=== PATIENT | female | born 1995 | race African-American/Black ===

== ENCOUNTER 2017-03-09 08:23 | Emergency (ER) | payer OTHER ==
[2017-03-09 08:37] VITALS: RESP 18
--- NOTE | 2017-03-09 09:15 | ED ---
General Adult HPI - General Chief complaint: Anxiety Stated complaint: POSS PANIC ATTACK Time Seen by Provider: 03/09/17 09:09 Source: patient, RN notes reviewed Mode of arrival: ambulatory Limitations: no limitations - History of Present Illness Initial comments: Patient is a 19-year-old female who presents emergency room today with chief complaint of anxiety. She doesn't that she was at work. She states that she began feeling her heart race. She states then she became worried about it and became D feel like her knees were weak and she was shaking. States it lasted 20 minutes. Calm down. She states feeling much better at this time not having any complaints or symptoms currently. She does admit that she's had anxiety attacks in the past but is been over a year. She states that she used to take Ativan does not have this medication longer. Patient denies any other complaints or symptoms. Patient denies any recent fever, chills, shortness of breath, back pain, abdominal pain, vomiting, numbness or tingling, dysuria or hematuria, constipation or diarrhea, headaches or visual changes, or any other complaints. - Related Data Home Medications Medication Instructions Recorded Confirmed No Known Home Medications [No 04/05/16 03/09/17 Known Home Medications] Allergies Allergy/AdvReac Type Severity Reaction Status Date / Time No Known Allergies Allergy Verified 03/09/17 08:53 Review of Systems ROS Statement: Those systems with pertinent positive or pertinent negative responses have been documented in the HPI. ROS Other: All systems not noted in ROS Statement are negative. Past Medical History Past Medical History: No Reported History Additional Past Medical History / Comment(s): Positive anti-M antibody. History of Any Multi-Drug Resistant Organisms: None Reported Past Surgical History: No Surgical Hx Reported Past Anesthesia/Blood Transfusion Reactions: No Reported Reaction Past Psychological History: Anxiety, Depression Smoking Status: Current every day smoker Past Alcohol Use History: Occasional Past Drug Use History: None Reported - Past Family History Mother Family Medical History: No Reported History General Exam - General Exam Comments Initial Comments: General: The patient is awake and alert, in no distress, and does not appear acutely ill. Eye: Pupils are equal, round and reactive to light, extra-ocular movements are intact. No nystagmus. There is normal conjunctiva bilaterally. No signs of icterus. Ears, nose, mouth and throat: There are moist mucous membranes and no oral lesions. Neck: The neck is supple, there is no tenderness or JVD. Cardiovascular: There is a regular rate and rhythm. No murmur, rub or gallop is appreciated. Respiratory: Lungs are clear to auscultation, respirations are non-labored, breath sounds are equal. No wheezes, stridor, rales, or rhonchi. Musculoskeletal: Normal ROM, no tenderness. Strength 5/5. Sensation intact. Pulses equal bilaterally 2+. Neurological: A&O x 3. CN II-XII intact, There are no obvious motor or sensory deficits. Coordination appears grossly intact. Speech is normal. Skin: Skin is warm and dry and no rashes or lesions are noted. Psychiatric: Cooperative, appropriate mood & affect, normal judgment. Limitations: no limitations Course Vital Signs 03/09/17 08:34 Temperature 97.3 F L Pulse Rate 84 Respiratory 18 Rate Blood Pressure 157/81 O2 Sat by Pulse 99 Oximetry EKG Findings - EKG Comments: EKG Findings:: EKG performed at 0924: A 12-lead EKG was performed and interpreted by me as showing the following: Rate is 77, and rhythm is normal sinus. There are normal QRS complexes and normal R-wave progression. ST segments have no elevation or depression, and MO segments appear normal. Medical Decision Making - Medical Decision Making Patient's EKG shows normal sinus rhythm. Her symptoms are consistent with panic attacks that she's had in the past. She has no symptoms here in the emergency room feeling much better. Patient will be discharged home advised follow-up family doctor. Advised return if any symptoms return increase or worsen. She states understanding and is in agreement with the plan. Disposition Clinical Impression: Acute anxiety Disposition: HOME SELF-CARE Condition: Good Instructions: Generalized Anxiety Disorder (ED) Additional Instructions: Please follow-up with family doctor in the next 2 days of symptoms have not improved. Please return to emergency room if the symptoms increase or worsen or for any other concerns. Referrals: Morgan Stearns MD [Primary Care Provider] - 1-2 days Time of Disposition: 10:20
[2017-03-09 10:34] VITALS: BP 131/68; PULSE 83; TEMP 97.8
== END 2017-03-09 10:34 | disposition home or self-care (01) ==
LOC: EC 08:23
DX: F41.9 Anxiety disorder, unspecified (principal); F17.200 Nicotine dependence, unspecified, uncomplicated
CPT/HCPCS: 93005; 99283

== ENCOUNTER 2017-03-19 17:11 | Emergency (ER) | payer OTHER ==
[2017-03-19 18:03] VITALS: RESP 18
--- NOTE | 2017-03-19 18:59 | ED ---
Abdominal Pain HPI - General Chief Complaint: Abdominal Pain Stated Complaint: ABDOMINAL PAIN, Hx CYST ON OVARY Time Seen by Provider: 03/19/17 18:57 Source: patient Mode of arrival: ambulatory Limitations: no limitations - History of Present Illness Initial Comments: Patient presents with mild to moderate intermittent sharp pain in bilateral lower abdomen/pelvic region for the past 3 weeks. States more frequent today. States usually triggered by urination. States symptoms are worse during her menstrual cycle this month. Denies any vaginal bleeding or discharge at this time. Denies any changes in bowel movements, constipation, diarrhea. Denies fevers, chills. Patient states pain made her nauseated earlier today. Patient states she used to see a tree chipper for history of ovarian cysts. MD Complaint: abdominal pain - Related Data Home Medications Medication Instructions Recorded Confirmed No Known Home Medications [No 04/05/16 03/19/17 Known Home Medications] Allergies Allergy/AdvReac Type Severity Reaction Status Date / Time No Known Allergies Allergy Verified 03/19/17 19:14 Review of Systems ROS Statement: Those systems with pertinent positive or pertinent negative responses have been documented in the HPI. ROS Other: All systems not noted in ROS Statement are negative. Constitutional: Denies: fever, chills, weakness ENT: Denies: throat pain, congestion Respiratory: Denies: cough, dyspnea Cardiovascular: Denies: chest pain, palpitations Endocrine: Denies: fatigue Gastrointestinal: Reports: abdominal pain, nausea. Denies: vomiting, diarrhea, constipation, hematemesis, melena, hematochezia Genitourinary: Reports: other (worse abd pain with urination). Denies: urgency , dysuria, frequency, hematuria, discharge, abnormal menses Musculoskeletal: Denies: back pain, myalgia Skin: Denies: rash Neurological: Denies: headache Past Medical History Past Medical History: No Reported History Additional Past Medical History / Comment(s): Positive anti-M antibody. History of Any Multi-Drug Resistant Organisms: None Reported Past Surgical History: No Surgical Hx Reported Past Anesthesia/Blood Transfusion Reactions: No Reported Reaction Past Psychological History: Anxiety, Depression Smoking Status: Current every day smoker Past Alcohol Use History: Occasional Past Drug Use History: None Reported - Past Family History Mother Family Medical History: No Reported History General Exam - General Exam Comments Initial Comments: Sitting up in bed smiling legs crossed taxing on phone. No acute distress. Conversing normally. Well-appearing. Does not appear in pain. Calm, pleasant. Limitations: no limitations General appearance: alert, in no apparent distress Head exam: Present: atraumatic, normocephalic Eye exam: Present: normal appearance, PERRL, EOMI ENT exam: Present: normal exam, mucous membranes moist Neck exam: Present: normal inspection Respiratory exam: Present: normal lung sounds bilaterally. Absent: respiratory distress, wheezes, rales, rhonchi, stridor Cardiovascular Exam: Present: regular rate, normal rhythm GI/Abdominal exam: Present: soft, other (No tenderness appreciated). Absent: distended, tenderness, guarding, rebound, rigid, hernia Extremities exam: Present: normal inspection Neurological exam: Present: alert, oriented X3 Psychiatric exam: Present: normal affect, normal mood Skin exam: Present: warm, dry, intact, normal color. Absent: rash Course Vital Signs 03/19/17 18:00 Temperature 99.9 F H Pulse Rate 75 Respiratory 18 Rate Blood Pressure 127/83 O2 Sat by Pulse 100 Oximetry Medical Decision Making - Medical Decision Making No significant lab abnormalities. UA likely represents contaminated sample. Patient is a test negative Ultrasound shows free fluid in the pelvis, symptoms may be secondary to ruptured ovarian cyst. Patient updated with poor results. Pain control at this time. Feels comfortable being discharged home. Agrees all primary care physician and her tree chipper. Return to ER for new or worsening symptoms including increased pain, fevers - Lab Data Result diagrams: 03/19/17 19:27 03/19/17 19:27 Lab Results 03/19/17 03/19/17 03/19/17 Range/Units 19:27 19:27 19:27 WBC (3.8-10.6) k/uL RBC (3.80-5.40) m/uL Hgb (11.4-16.0) gm/dL Hct (34.0-46.0) % MCV (80.0-100.0) fL MCH (25.0-35.0) pg MCHC (31.0-37.0) g/dL RDW (11.5-15.5) % Plt Count (150-450) k/uL Neutrophils % % Lymphocytes % % Monocytes % % Eosinophils % % Basophils % % Neutrophils # (1.3-7.7) k/uL Lymphocytes # (1.0-4.8) k/uL Monocytes # (0-1.0) k/uL Eosinophils # (0-0.7) k/uL Basophils # (0-0.2) k/uL Hypochromasia Sodium 141 (137-145) mmol/L Potassium 4.0 (3.5-5.1) mmol/L Chloride 104 (98-107) mmol/L Carbon Dioxide 27 (22-30) mmol/L Anion Gap 10 mmol/L BUN 9 (7-17) mg/dL Creatinine 0.69 (0.52-1.04) mg/dL Est GFR (MDRD) Af Amer >60 (>60 ml/min/1.73 sqM) Est GFR (MDRD) Non-Af >60 (>60 ml/min/1.73 sqM) Glucose 87 (74-99) mg/dL Calcium 9.9 (8.4-10.2) mg/dL Urine Color Yellow Urine Appearance Cloudy H (Clear) Urine pH 6.0 (5.0-8.0) Ur Specific [place] 1.024 (1.001-1.035) Urine Protein 1+ H (Negative) Urine Glucose (UA) Negative (Negative) Urine Ketones Negative (Negative) Urine Blood Small H (Negative) Urine Nitrite Negative (Negative) Urine Bilirubin Negative (Negative) Urine Urobilinogen 4.0 (<2.0) mg/dL Ur Leukocyte Esterase Moderate H (Negative) Urine RBC 28 H (0-5) /hpf Urine WBC 15 H (0-5) /hpf Ur Squamous Epith Cells 17 H (0-4) /hpf Urine Bacteria Few H (None) /hpf Urine Mucus Moderate H (None) /hpf Urine HCG, Qual Not Detected (Not Detectd) 03/19/17 Range/Units 19:27 WBC 8.4 (3.8-10.6) k/uL RBC 4.72 (3.80-5.40) m/uL Hgb 12.8 (11.4-16.0) gm/dL Hct 41.2 (34.0-46.0) % MCV 87.2 (80.0-100.0) fL MCH 27.1 (25.0-35.0) pg MCHC 31.0 (31.0-37.0) g/dL RDW 14.8 (11.5-15.5) % Plt Count 313 (150-450) k/uL Neutrophils % 59 % Lymphocytes % 33 % Monocytes % 4 % Eosinophils % 2 % Basophils % 0 % Neutrophils # 5.0 (1.3-7.7) k/uL Lymphocytes # 2.8 (1.0-4.8) k/uL Monocytes # 0.3 (0-1.0) k/uL Eosinophils # 0.2 (0-0.7) k/uL Basophils # 0.0 (0-0.2) k/uL Hypochromasia Slight Sodium (137-145) mmol/L Potassium (3.5-5.1) mmol/L Chloride (98-107) mmol/L Carbon Dioxide (22-30) mmol/L Anion Gap mmol/L BUN (7-17) mg/dL Creatinine (0.52-1.04) mg/dL Est GFR (MDRD) Af Amer (>60 ml/min/1.73 sqM) Est GFR (MDRD) Non-Af (>60 ml/min/1.73 sqM) Glucose (74-99) mg/dL Calcium (8.4-10.2) mg/dL Urine Color Urine Appearance (Clear) Urine pH (5.0-8.0) Ur Specific [place] (1.001-1.035) Urine Protein (Negative) Urine Glucose (UA) (Negative) Urine Ketones (Negative) Urine Blood (Negative) Urine Nitrite (Negative) Urine Bilirubin (Negative) Urine Urobilinogen (<2.0) mg/dL Ur Leukocyte Esterase (Negative) Urine RBC (0-5) /hpf Urine WBC (0-5) /hpf Ur Squamous Epith Cells (0-4) /hpf Urine Bacteria (None) /hpf Urine Mucus (None) /hpf Urine HCG, Qual (Not Detectd) Disposition Clinical Impression: Pelvic pain Disposition: HOME SELF-CARE Condition: Good Instructions: Pelvic Pain in Women (ED) Additional Instructions: Follow-up at her primary care physician and tree chipper for reevaluation. Take Motrin as needed for pain at home. Return to ER for new or worsening symptoms. Referrals: Morgan Stearns MD [Primary Care Provider] - 1-2 days
[2017-03-19 19:46] LABS: Appearance,Urine Cloudy (Clear); Bacteria,Urine Few /hpf; Bilirubin,Urine Negative (Negative); Blood,Urine Small (Negative); Color,Urine Yellow; Glucose,Urine (UA) Negative (Negative); Ketones,Urine Negative (Negative); Leukocyte Esterase,Urine Moderate (Negative); Mucus,Urine Moderate /hpf; Nitrite,Urine Negative (Negative); Protein,Urine 1+ (Negative); RBC,Urine 28 /hpf (0-5); Specific Gravity,Urine 1.024 (1.001-1.035); Squamous Epithelial Cell,Urine 17 /hpf (0-4); WBC,Urine 15 /hpf (0-5)
[2017-03-19 19:57] LABS: Anion Gap 10 mmol/L; Blood Urea Nitrogen 9 mg/dL (7-17); Calcium 9.9 mg/dL (8.4-10.2); Carbon Dioxide 27 mmol/L (22-30); Chloride 104 mmol/L (98-107); Glucose 87 mg/dL (74-99); Sodium 141 mmol/L (137-145)
[2017-03-19 19:59] LABS: Basophils % (A) 0 %; Eosinophils # (A) 0.2 k/uL (0-0.7); Eosinophils % (A) 2 %; HCT 41.2 % (34.0-46.0); HGB 12.8 gm/dL (11.4-16.0); Hypochromasia Slight; Lymphocytes # (A) 2.8 k/uL (1.0-4.8); Lymphocytes % (A) 33 %; MCH 27.1 pg (25.0-35.0); MCV 87.2 fL (80.0-100.0); Mean Platelet Volume 7.2; Monocytes # (A) 0.3 k/uL (0-1.0); Monocytes % (A) 4 %; Neutrophils % (A) 59 %; Platelet Count 313 k/uL (150-450); RBC 4.72 m/uL (3.80-5.40); RDW 14.8 % (11.5-15.5); WBC 8.4 k/uL (3.8-10.6)
--- NOTE | 2017-03-19 20:12 | US ---
EXAMINATION TYPE: US transvaginal DATE OF EXAM: 03/19/2017 COMPARISON: NONE CLINICAL HISTORY: Pain. Pelvic pain TECHNIQUE: Transvaginal (TV) Date of LMP: 03/09/2017 EXAM MEASUREMENTS: Uterus: 7.3 x 4.1 x 2.6 cm Endometrial Stripe: 0.6 cm Right Ovary: 2.6 x 1.6 x 2.1 cm Left Ovary: 2.6 x 1.7 x 2.3 cm 1. Uterus: Anteverted wnl 2. Endometrium: wnl 3. Right Ovary: Follicles seen 4. Left Ovary: Follicles seen Spectral, color and waveform doppler imaging shows good arterial and venous flow within the ovaries ; there is no evidence for ovarian torsion. 5. Bilateral Adnexa: wnl 6. Posterior cul-de-sac: Fluid seen IMPRESSION: There is mild free fluid in the cul-de-sac. No evidence of ovarian torsion. No adnexal ma ss.
[2017-03-19 21:12] VITALS: BP 149/92; PULSE 67; TEMP 97.7
[2017-03-19] MEDS ORDERED: IBUPROFEN 600 MG TAB PO STA (21:16)
== END 2017-03-19 21:24 | disposition home or self-care (01) ==
LOC: EC 17:11
DX: R10.2 Pelvic and perineal pain (principal); N83.209 Unspecified ovarian cyst, unspecified side; F17.200 Nicotine dependence, unspecified, uncomplicated
CPT/HCPCS: 36415; 76830; 80048; 81001; 81025; 85025; 93975; 99284

== ENCOUNTER 2017-10-08 15:51 | Emergency (ER) | payer OTHER ==
[2017-10-08 16:36] VITALS: RESP 18
[2017-10-08 17:26] VITALS: PULSE 91
[2017-10-08] MEDS ORDERED: SODIUM CHLORIDE 0.9% 1,000 ML IV STA (17:48)
[2017-10-08] MEDS ORDERED: ONDANSETRON 4 MG/2 ML VIAL IVP STA (17:55)
[2017-10-08] MEDS ORDERED: ACETAMINOPHEN IV (For NPO) 1,000 MG in EMPTY BAG 1 BAG IVPB STA (17:55)
[2017-10-08 18:07] LABS: Appearance,Urine Cloudy (Clear); Bacteria,Urine Occasional /hpf; Bilirubin,Urine Negative (Negative); Blood,Urine Large (Negative); Color,Urine Yellow; Glucose,Urine (UA) Negative (Negative); Ketones,Urine Negative (Negative); Leukocyte Esterase,Urine Large (Negative); Mucus,Urine Rare /hpf; Nitrite,Urine Positive (Negative); Protein,Urine 1+ (Negative); RBC,Urine 31 /hpf (0-5); Specific Gravity,Urine 1.011 (1.001-1.035); Squamous Epithelial Cell,Urine 1 /hpf (0-4); Urobilinogen,Urine <2.0 mg/dL (<2.0); WBC,Urine >182 /hpf (0-5)
[2017-10-08 18:08] LABS: Basophils % (A) 0 %; Eosinophils # (A) 0.2 k/uL (0-0.7); Eosinophils % (A) 1 %; HCT 37.6 % (34.0-46.0); HGB 12.2 gm/dL (11.4-16.0); INR 1.1 (<1.2); Lymphocytes # (A) 1.4 k/uL (1.0-4.8); Lymphocytes % (A) 11 %; MCH 27.3 pg (25.0-35.0); MCHC 32.5 g/dL (31.0-37.0); MCV 83.9 fL (80.0-100.0); Mean Platelet Volume 6.8; Monocytes # (A) 0.5 k/uL (0-1.0); Monocytes % (A) 4 %; Neutrophils % (A) 84 %; Partial Thromboplastin Time 27.3 sec (22.0-30.0); Platelet Count 258 k/uL (150-450); Prothrombin Time 10.9 sec (9.0-12.0); RBC 4.49 m/uL (3.80-5.40); RDW 14.8 % (11.5-15.5); WBC 13.1 k/uL (3.8-10.6)
[2017-10-08 18:09] LABS: ALT 22 U/L (9-52); AST 15 U/L (14-36); Albumin 4.2 g/dL (3.5-5.0); Alkaline Phosphatase 60 U/L (38-126); Amylase 44 U/L (30-110); Anion Gap 11 mmol/L; Blood Urea Nitrogen 13 mg/dL (7-17); Calcium 9.6 mg/dL (8.4-10.2); Carbon Dioxide 25 mmol/L (22-30); Chloride 102 mmol/L (98-107); Glucose 90 mg/dL (74-99); Lipase <10 U/L (23-300); Potassium 3.3 mmol/L (3.5-5.1); Sodium 138 mmol/L (137-145); Total Bilirubin 0.5 mg/dL (0.2-1.3); Total Protein 7.9 g/dL (6.3-8.2)
[2017-10-08] MEDS ORDERED: cefTRIAXone 2,000 MG in SODIUM CHLORIDE 0.9% 100 ML IVPB STA (19:07)
[2017-10-08] MEDS ORDERED: cefTRIAXone IN SWFI 2,000 MG/20 ML SYRINGE IVP STA (19:10)
[2017-10-08] MEDS ORDERED: KETOROLAC 30 MG/ML 1 ML VIAL IVP STA (19:14)
--- NOTE | 2017-10-08 19:19 | CT ---
EXAMINATION TYPE: CT abdomen pelvis w con DATE OF EXAM: 10/08/2017 COMPARISON: None HISTORY: Left sided pain with lack of bowel movements. CT DLP: 387.9 mGycm Automated exposure control for dose reduction was used. TECHNIQUE: Helical acquisition of images was performed from the lung bases through the pelvis. CONTRAST: Performed without Oral Contrast and with IV Contrast, patient injected with 100 mL of Isovue 300. FINDINGS: Lung bases are clear. There is no pleural effusion. Heart size is normal. Liver spleen pancreas gallbladder appear normal. Bile ducts are not dilated. There is no adrenal mass. Kidneys show satisfactory contrast opacification. There is no hydronephrosi s. Ureters are not dilated. There is no retroperitoneal adenopathy. Bladder distends smoothly. Uterus is anteverted. There is no pelvic mass. There is no free fluid in the pelvis. Appendix is not defini tely seen. There is no sign of appendicitis. There is no intestinal wall thickening. There are no dil ated loops. Lumbar spine is intact. There is no sign of pneumoperitoneum. IMPRESSION: NEGATIVE CT SCAN OF THE ABDOMEN AND PELVIS. NO RENAL STONE OR OBSTRUCTION. NO SIGN OF APPENDICITIS.
--- NOTE | 2017-10-08 19:31 | ED ---
General Adult HPI - General Chief complaint: Abdominal Pain Stated complaint: left side pain Time Seen by Provider: 10/08/17 17:45 Source: patient Mode of arrival: ambulatory Limitations: no limitations - Related Data Previous Rx's Medication Instructions Recorded Ibuprofen [Motrin] 600 mg PO Q6HR PRN #30 day 10/08/17 Sulfamethox-Tmp 800-160Mg [Bactrim 1 tab PO Q12HR #20 tab 10/08/17 DS 800-160 mg] Allergies Allergy/AdvReac Type Severity Reaction Status Date / Time No Known Allergies Allergy Verified 10/08/17 16:36 Review of Systems ROS Statement: Those systems with pertinent positive or pertinent negative responses have been documented in the HPI. ROS Other: All systems not noted in ROS Statement are negative. Past Medical History Past Medical History: No Reported History Additional Past Medical History / Comment(s): Positive anti-M antibody. History of Any Multi-Drug Resistant Organisms: None Reported Past Surgical History: No Surgical Hx Reported Past Anesthesia/Blood Transfusion Reactions: No Reported Reaction Past Psychological History: Anxiety, Depression Smoking Status: Current every day smoker Past Alcohol Use History: Occasional Past Drug Use History: None Reported - Past Family History Mother Family Medical History: No Reported History General Exam Limitations: no limitations Course Vital Signs 10/08/17 10/08/17 16:33 17:25 Temperature 100.3 F H 101.8 F H Pulse Rate 110 H 91 Respiratory 18 18 Rate Blood Pressure 115/71 131/81 O2 Sat by Pulse 100 98 Oximetry Medical Decision Making - Medical Decision Making Patient's labs been reviewed does show 13,000 white count. Patient's urinalysis is positive for nitrate and urinary tract infection with greater than 182 white cells. Culture is pending. Patient is resting comfortably. She did have fever at triage. Patient does admit symptoms have improved. Given 2 g Rocephin here in emergency room. Feels comfortable with discharge. Case discussed with attending physician Dr. Gayle. CT of abdomen and pelvis is unremarkable. Patient is advised close follow-up the family doctor tomorrow return here to the emergency room symptoms increase or worsen. She'll be continued on antibiotics. - Lab Data Result diagrams: 10/08/17 17:45 10/08/17 17:45 Lab Results 10/08/17 10/08/17 10/08/17 Range/Units 17:45 17:45 17:45 WBC (3.8-10.6) k/uL RBC (3.80-5.40) m/uL Hgb (11.4-16.0) gm/dL Hct (34.0-46.0) % MCV (80.0-100.0) fL MCH (25.0-35.0) pg MCHC (31.0-37.0) g/dL RDW (11.5-15.5) % Plt Count (150-450) k/uL Neutrophils % % Lymphocytes % % Monocytes % % Eosinophils % % Basophils % % Neutrophils # (1.3-7.7) k/uL Lymphocytes # (1.0-4.8) k/uL Monocytes # (0-1.0) k/uL Eosinophils # (0-0.7) k/uL Basophils # (0-0.2) k/uL PT 10.9 (9.0-12.0) sec INR 1.1 (<1.2) APTT 27.3 (22.0-30.0) sec Sodium 138 (137-145) mmol/L Potassium 3.3 L (3.5-5.1) mmol/L Chloride 102 (98-107) mmol/L Carbon Dioxide 25 (22-30) mmol/L Anion Gap 11 mmol/L BUN 13 (7-17) mg/dL Creatinine 0.70 (0.52-1.04) mg/dL Est GFR (CKD-EPI)AfAm >90 (>60 ml/min/1.73 sqM) Est GFR (CKD-EPI)NonAf >90 (>60 ml/min/1.73 sqM) Glucose 90 (74-99) mg/dL Plasma Lactic Acid Neil (0.7-2.0) mmol/L Calcium 9.6 (8.4-10.2) mg/dL Total Bilirubin 0.5 (0.2-1.3) mg/dL AST 15 (14-36) U/L ALT 22 (9-52) U/L Alkaline Phosphatase 60 (38-126) U/L Total Protein 7.9 (6.3-8.2) g/dL Albumin 4.2 (3.5-5.0) g/dL Amylase 44 (30-110) U/L Lipase <10 L (23-300) U/L Urine Color Urine Appearance (Clear) Urine pH (5.0-8.0) Ur Specific [place] (1.001-1.035) Urine Protein (Negative) Urine Glucose (UA) (Negative) Urine Ketones (Negative) Urine Blood (Negative) Urine Nitrite (Negative) Urine Bilirubin (Negative) Urine Urobilinogen (<2.0) mg/dL Ur Leukocyte Esterase (Negative) Urine RBC (0-5) /hpf Urine WBC (0-5) /hpf Urine WBC Clumps (None) /hpf Ur Squamous Epith Cells (0-4) /hpf Urine Bacteria (None) /hpf Urine Mucus (None) /hpf Urine HCG, Qual Not Detected (Not Detectd) 10/08/17 10/08/17 10/08/17 Range/Units 17:45 17:45 17:45 WBC 13.1 H (3.8-10.6) k/uL RBC 4.49 (3.80-5.40) m/uL Hgb 12.2 (11.4-16.0) gm/dL Hct 37.6 (34.0-46.0) % MCV 83.9 (80.0-100.0) fL MCH 27.3 (25.0-35.0) pg MCHC 32.5 (31.0-37.0) g/dL RDW 14.8 (11.5-15.5) % Plt Count 258 (150-450) k/uL Neutrophils % 84 % Lymphocytes % 11 % Monocytes % 4 % Eosinophils % 1 % Basophils % 0 % Neutrophils # 11.0 H (1.3-7.7) k/uL Lymphocytes # 1.4 (1.0-4.8) k/uL Monocytes # 0.5 (0-1.0) k/uL Eosinophils # 0.2 (0-0.7) k/uL Basophils # 0.0 (0-0.2) k/uL PT (9.0-12.0) sec INR (<1.2) APTT (22.0-30.0) sec Sodium (137-145) mmol/L Potassium (3.5-5.1) mmol/L Chloride (98-107) mmol/L Carbon Dioxide (22-30) mmol/L Anion Gap mmol/L BUN (7-17) mg/dL Creatinine (0.52-1.04) mg/dL Est GFR (CKD-EPI)AfAm (>60 ml/min/1.73 sqM) Est GFR (CKD-EPI)NonAf (>60 ml/min/1.73 sqM) Glucose (74-99) mg/dL Plasma Lactic Acid Neil 1.0 (0.7-2.0) mmol/L Calcium (8.4-10.2) mg/dL Total Bilirubin (0.2-1.3) mg/dL AST (14-36) U/L ALT (9-52) U/L Alkaline Phosphatase (38-126) U/L Total Protein (6.3-8.2) g/dL Albumin (3.5-5.0) g/dL Amylase (30-110) U/L Lipase (23-300) U/L Urine Color Yellow Urine Appearance Cloudy H (Clear) Urine pH 6.0 (5.0-8.0) Ur Specific [place] 1.011 (1.001-1.035) Urine Protein 1+ H (Negative) Urine Glucose (UA) Negative (Negative) Urine Ketones Negative (Negative) Urine Blood Large H (Negative) Urine Nitrite Positive H (Negative) Urine Bilirubin Negative (Negative) Urine Urobilinogen <2.0 (<2.0) mg/dL Ur Leukocyte Esterase Large H (Negative) Urine RBC 31 H (0-5) /hpf Urine WBC >182 H (0-5) /hpf Urine WBC Clumps Many H (None) /hpf Ur Squamous Epith Cells 1 (0-4) /hpf Urine Bacteria Occasional H (None) /hpf Urine Mucus Rare H (None) /hpf Urine HCG, Qual (Not Detectd) Disposition Clinical Impression: UTI (urinary tract infection) Disposition: HOME SELF-CARE Condition: Good Instructions: Urinary Tract Infection in Women (ED) Additional Instructions: Please use medication as discussed. Please follow-up with family doctor in the next 1-2 days. Please return to emergency room if the symptoms increase or worsen or for any other concerns. Prescriptions: Ibuprofen [Motrin] 600 mg PO Q6HR PRN #30 day PRN Reason: Pain Sulfamethox-Tmp 800-160Mg [Bactrim DS 800-160 mg] 1 tab PO Q12HR #20 tab Is patient prescribed a controlled substance at d/c from ED?: No Referrals: None,Stated [Primary Care Provider] - 1-2 days Morgan Stearns MD [REFERRING] - 1-2 days Time of Disposition: 19:28
[2017-10-08 19:37] VITALS: BP 130/69; TEMP 98
== END 2017-10-08 19:49 | disposition home or self-care (01) ==
LOC: EC 15:51
DX: N39.0 Urinary tract infection, site not specified (principal); R11.0 Nausea; F17.200 Nicotine dependence, unspecified, uncomplicated
CPT/HCPCS: 36415; 80053; 82150; 83605; 83690; 85025; 85610; 85730; 81001; 81025; 87086; 74177; 99284; 96365; 96375 ×3; 96361; J2405; J0696; J1885; J0131; Q9967

== ENCOUNTER 2018-06-17 13:17 | Emergency (ER) | payer OTHER ==
[2018-06-17 13:21] VITALS: RESP 16
[2018-06-17 14:25] LABS: Basophils % (A) 0 %; Eosinophils # (A) 0.2 k/uL (0-0.7); Eosinophils % (A) 2 %; HCT 36.6 % (34.0-46.0); HGB 11.9 gm/dL (11.4-16.0); Lymphocytes # (A) 3.2 k/uL (1.0-4.8); Lymphocytes % (A) 37 %; MCH 27.3 pg (25.0-35.0); MCHC 32.4 g/dL (31.0-37.0); MCV 84.3 fL (80.0-100.0); Mean Platelet Volume 7.4; Monocytes # (A) 0.4 k/uL (0-1.0); Monocytes % (A) 5 %; Neutrophils # (A) 4.7 k/uL (1.3-7.7); Neutrophils % (A) 55 %; Platelet Count 313 k/uL (150-450); RBC 4.34 m/uL (3.80-5.40); RDW 15.2 % (11.5-15.5); WBC 8.7 k/uL (3.8-10.6)
[2018-06-17 14:46] LABS: Appearance,Urine Clear (Clear); Bilirubin,Urine Negative (Negative); Blood,Urine Small (Negative); Color,Urine Colorless; Glucose,Urine (UA) Negative (Negative); Ketones,Urine Negative (Negative); Leukocyte Esterase,Urine Negative (Negative); Mucus,Urine Rare /hpf; Nitrite,Urine Negative (Negative); Protein,Urine Negative (Negative); RBC,Urine 1 /hpf (0-5); Specific Gravity,Urine 1.002 (1.001-1.035); Squamous Epithelial Cell,Urine <1 /hpf (0-4); Urobilinogen,Urine <2.0 mg/dL (<2.0)
--- NOTE | 2018-06-17 14:53 | ED ---
Female Urogenital HPI - General Chief complaint: Vaginal Bleeding Stated complaint: vaginal bleeding Time Seen by Provider: 06/17/18 13:33 Source: patient, RN notes reviewed Mode of arrival: ambulatory Limitations: no limitations - History of Present Illness Initial comments: 23-year-old female presents emergency Department with chief complaint of vaginal bleeding early . Patient states that she took a test 4 days ago which was positive. Patient is A0. Patient has not contacted no declined. Patient states she had some spotting which is having this morning though it subsided. She has no localized pain at this time no dysuria no urinary frequency. Last Menstrual Period: 05/14/18 - Related Data Home Medications Medication Instructions Recorded Confirmed No Known Home Medications 06/17/18 06/17/18 Allergies Allergy/AdvReac Type Severity Reaction Status Date / Time No Known Allergies Allergy Verified 06/17/18 13:36 Review of Systems ROS Statement: Those systems with pertinent positive or pertinent negative responses have been documented in the HPI. ROS Other: All systems not noted in ROS Statement are negative. Past Medical History Past Medical History: No Reported History Additional Past Medical History / Comment(s): Positive anti-M antibody. History of Any Multi-Drug Resistant Organisms: None Reported Past Surgical History: No Surgical Hx Reported Past Anesthesia/Blood Transfusion Reactions: No Reported Reaction Past Psychological History: Anxiety, Depression Smoking Status: Current every day smoker Past Alcohol Use History: Occasional Past Drug Use History: None Reported - Past Family History Mother Family Medical History: No Reported History General Exam Limitations: no limitations General appearance: alert, in no apparent distress Respiratory exam: Present: normal lung sounds bilaterally. Absent: respiratory distress, wheezes, rales, rhonchi, stridor Cardiovascular Exam: Present: regular rate, normal rhythm, normal heart sounds. Absent: systolic murmur, diastolic murmur, rubs, gallop, clicks GI/Abdominal exam: Present: soft, normal bowel sounds. Absent: distended, tenderness, guarding, rebound, rigid Course Vital Signs 06/17/18 13:18 Temperature 98.7 F Pulse Rate 96 Respiratory 16 Rate Blood Pressure 144/81 O2 Sat by Pulse 100 Oximetry Medical Decision Making - Medical Decision Making 23-year-old female presented for vaginal bleeding early . Patient's hCG is 1326 ultrasound shows probable early gestational sac, O+ blood type. Patient be discharged with repeat hCG in 2 days return parameters were discussed. - Lab Data Result diagrams: 06/17/18 14:12 Lab Results 06/17/18 06/17/18 06/17/18 Range/Units 14:12 14:12 14:12 WBC 8.7 (3.8-10.6) k/uL RBC 4.34 (3.80-5.40) m/uL Hgb 11.9 (11.4-16.0) gm/dL Hct 36.6 (34.0-46.0) % MCV 84.3 (80.0-100.0) fL MCH 27.3 (25.0-35.0) pg MCHC 32.4 (31.0-37.0) g/dL RDW 15.2 (11.5-15.5) % Plt Count 313 (150-450) k/uL Neutrophils % 55 % Lymphocytes % 37 % Monocytes % 5 % Eosinophils % 2 % Basophils % 0 % Neutrophils # 4.7 (1.3-7.7) k/uL Lymphocytes # 3.2 (1.0-4.8) k/uL Monocytes # 0.4 (0-1.0) k/uL Eosinophils # 0.2 (0-0.7) k/uL Basophils # 0.0 (0-0.2) k/uL HCG, Quant mIU/mL Urine Color Colorless Urine Appearance Clear (Clear) Urine pH 6.0 (5.0-8.0) Ur Specific [place] 1.002 (1.001-1.035) Urine Protein Negative (Negative) Urine Glucose (UA) Negative (Negative) Urine Ketones Negative (Negative) Urine Blood Small H (Negative) Urine Nitrite Negative (Negative) Urine Bilirubin Negative (Negative) Urine Urobilinogen <2.0 (<2.0) mg/dL Ur Leukocyte Esterase Negative (Negative) Urine RBC 1 (0-5) /hpf Urine WBC 1 (0-5) /hpf Ur Squamous Epith Cells <1 (0-4) /hpf Urine Mucus Rare H (None) /hpf Blood Type O Positive Blood Type Recheck No 06/17/18 Range/Units 14:12 WBC (3.8-10.6) k/uL RBC (3.80-5.40) m/uL Hgb (11.4-16.0) gm/dL Hct (34.0-46.0) % MCV (80.0-100.0) fL MCH (25.0-35.0) pg MCHC (31.0-37.0) g/dL RDW (11.5-15.5) % Plt Count (150-450) k/uL Neutrophils % % Lymphocytes % % Monocytes % % Eosinophils % % Basophils % % Neutrophils # (1.3-7.7) k/uL Lymphocytes # (1.0-4.8) k/uL Monocytes # (0-1.0) k/uL Eosinophils # (0-0.7) k/uL Basophils # (0-0.2) k/uL HCG, Quant 1321.6 mIU/mL Urine Color Urine Appearance (Clear) Urine pH (5.0-8.0) Ur Specific [place] (1.001-1.035) Urine Protein (Negative) Urine Glucose (UA) (Negative) Urine Ketones (Negative) Urine Blood (Negative) Urine Nitrite (Negative) Urine Bilirubin (Negative) Urine Urobilinogen (<2.0) mg/dL Ur Leukocyte Esterase (Negative) Urine RBC (0-5) /hpf Urine WBC (0-5) /hpf Ur Squamous Epith Cells (0-4) /hpf Urine Mucus (None) /hpf Blood Type Blood Type Recheck Disposition Clinical Impression: Threatened miscarriage in early Disposition: HOME SELF-CARE Condition: Stable Instructions (If sedation given, give patient instructions): Threatened Miscarriage (ED) Additional Instructions: Please return to the Emergency Department if symptoms worsen or any other concerns. Is patient prescribed a controlled substance at d/c from ED?: No Referrals: None,Stated [Primary Care Provider] - 1-2 days Time of Disposition: 15:01
--- NOTE | 2018-06-17 14:54 | US ---
EXAMINATION TYPE: Transabdominal DATE OF EXAM: 06/17/2018 2:27 PM COMPARISON: NONE CLINICAL HISTORY: Pain. Patient states having positive test yesterday. Spotting this ryan combs EXAM PERFORMED: Transvaginal (TV) and Transabdominal (TA), endovaginal scanning performed for better evaluation of uterus. EXAM MEASUREMENTS: GESTATIONAL AGE / DATING Dates by LMP: (4 weeks/6 days) EDC: 02/18/2019 Dates by Current Scan for: Unable to date by today's study MATERNAL ANATOMY Uterus: 7.9 x 5.9 x 4.9 cm Right Ovary: 3.4 x 2.4 x 2.2 cm Left Ovary: 2.6 x 1.4 x 1.5 cm Post CDS / Adnexa: free fluid Presence of free fluid: no Presence of corpus luteal cyst: right ovarian lesion with peripheral vascular flow - 2.0 x 1.3 x 1.4 cm Presence of subchorionic bleed: no GESTATION / SURVEY IUP: No IUP seen at this time Date of LMP: 05/14/2018, Beta HcG (if available): Not available at this time Possible GS seen within endometrium; MSD= 0.3 cm, too small to determine dates. No YS or CRL visuali zed. IMPRESSION: Findings could possibly represent an early gestation, endometrium is thickened, follow-up as indicate d.
[2018-06-17 16:06] VITALS: BP 130/78; PULSE 82; TEMP 98
== END 2018-06-17 16:00 | disposition home or self-care (01) ==
LOC: EC 13:17
DX: O20.0 Threatened abortion (principal); O99.330 Smoking (tobacco) complicating pregnancy, unspecified trimester; F17.200 Nicotine dependence, unspecified, uncomplicated; Z3A.00 Weeks of gestation of pregnancy not specified
CPT/HCPCS: 36415; 76801; 76817; 81001; 84702; 85025; 86900; 86901; 99284

== ENCOUNTER → 2018-06-19 | Outpatient (CLI) | payer OTHER | END | disposition home or self-care (01) | LOC: LABWHC1 11:48 | PROVIDERS: ATTEND Physician Assistant | DX: O20.0 Threatened abortion (principal) | CPT/HCPCS: 36415; 84702 ==

== ENCOUNTER 2018-12-02 21:05 | Outpatient (CLI) | payer OTHER ==
[2018-12-02 21:51] VITALS: BP 132/73; PULSE 93; RESP 16; TEMP 97.5
[2018-12-02 21:58] LABS: Amorphous Sediment,Urine Rare /hpf; Appearance,Urine Clear (Clear); Bilirubin,Urine Negative (Negative); Blood,Urine Moderate (Negative); Color,Urine Yellow; Glucose,Urine (UA) Negative (Negative); Ketones,Urine Negative (Negative); Leukocyte Esterase,Urine Moderate (Negative); Mucus,Urine Rare /hpf; Nitrite,Urine Negative (Negative); Protein,Urine Negative (Negative); RBC,Urine 6 /hpf (0-5); Specific Gravity,Urine 1.015 (1.001-1.035); Squamous Epithelial Cell,Urine 5 /hpf (0-4); Urobilinogen,Urine <2.0 mg/dL (<2.0); WBC,Urine 5 /hpf (0-5)
--- NOTE | 2018-12-06 03:52 | P.MSEPDOC ---
Presenting Problems - Arrival Data Date of Arrival on Unit: 12/02/18 Time of Arrival on Unit: 21:05 Mode of Transport: Wheelchair - Complaint Comment: Vaginal pressure, contractions, and sharp lower abdominal pain Medical History - Information : 2 Para: 1 Term: 1 : 0 Abortions: Spontaneous or Elective: 0 Number of Living Children: 1 - Gestational Age Gestational Age by HECTOR (wks/days): 28 Weeks and 6 Days Review of Systems - Review of Systems Constitutional: No problems Breast: No problems ENT: No problems Cardiovascular: No problems Respiratory: No problems Gastrointestinal: No problems Genitourinary: No problems Musculoskeletal: No problems Neurological: No problems Skin: No problems Vital Signs - Temperature Temperature: 97.5 F Temperature Source: Temporal Artery Scan - Pulse Right Brachial Pulse Rate: 93 Pulse Assessment Method: Automatic Cuff - Respirations Respiratory Rate: 16 Oxygen Delivery Method: Room Air O2 Sat by Pulse Oximetry: 100 - Blood Pressure Right Arm Blood Pressure: 132/73 Blood Pressure Mean: 92 Medical Screen Scoring (Pre) - Cervical Exam Dilation: 0 cm = 0 Membranes: Intact - Uterine Contractions Frequency: > 5 minutes apart = 1 Duration: N/A Intensity: N/A - Maternal Vital Signs Maternal Temperature: N/A Maternal Blood Pressure: N/A Signs of Preeclampsia: N/A Maternal Respirations: N/A - Maternal Trauma Maternal Trauma: N/A - Assessment - Baby A Baseline FHR: 150 Heart Rate - NICHD Category: Category I (Normal) = 0 NST: Reactive Position: N/A Station: N/A - Total Score - Baby A Total Score - Baby A: 1 - Total Score - Baby B Total Score - Baby B: 1 - Total Score - Baby C Total Score - Baby C: 1 - Level of Risk - Baby A Level of Risk - Baby A: Low (0-5) - Level of Risk - Baby B Level of Risk - Baby B: Low (0-5) - Level of Risk - Baby C Level of Risk - Baby C: Low (0-5) Physician Notification (Pre) - Physician Notified Physician Notified Date: 12/02/18 Physician Notified Time: 22:05 Physician/Practitioner Notifed:: Dr. Reynoso Spoke With: Dr. Reynoso New Order Received: Yes - Notification Comment Comment: Dr. Reynoso called and given report on pt UA results. Orders recieved to d/c pt to home. Pt to pharmacy picking technician Keflex script per Dr. Reynoso at [facility]. To educate pt to increase water intake and to follow up with Dr. Bueno Disposition - Disposition OB Disposition: Physician follow up in office, Discharge to home Discharge Date: 12/02/18 Discharge Time: 22:10 I agree with the RN Medical Screening Exam: Yes Risk & Benefit of care provided described in d/c instruction: Yes Diagnosis: URINARY TRACT INFECTION, SITE NOT SPECIFIED
== END 2018-12-02 22:10 | disposition home or self-care (01) ==
LOC: FBPOP 21:05
PROVIDERS: ATTEND Obstetrics & Gynecology
DX: O99.89 Other specified diseases and conditions complicating pregnancy, childbirth and the puerperium (principal); N39.0 Urinary tract infection, site not specified; Z3A.28 28 weeks gestation of pregnancy
CPT/HCPCS: 59025; 81001; G0463; 99213

== ENCOUNTER 2018-12-22 15:01 | Outpatient (CLI) | payer SELFPAY ==
[2018-12-22 15:32] LABS: Appearance,Urine Cloudy (Clear); Bacteria,Urine Rare /hpf; Bilirubin,Urine Negative (Negative); Blood,Urine Moderate (Negative); Color,Urine Yellow; Glucose,Urine (UA) Negative (Negative); Ketones,Urine Negative (Negative); Leukocyte Esterase,Urine Large (Negative); Mucus,Urine Rare /hpf; Nitrite,Urine Negative (Negative); Protein,Urine Trace (Negative); RBC,Urine 8 /hpf (0-5); Squamous Epithelial Cell,Urine 8 /hpf (0-4); Urobilinogen,Urine <2.0 mg/dL (<2.0); WBC,Urine 28 /hpf (0-5)
[2018-12-22 15:38] VITALS: BP 146/82; PULSE 106; RESP 16; TEMP 97.8
[2018-12-22 16:03] LABS: Basophils % (A) 0 %; Eosinophils # (A) 0.1 k/uL (0-0.7); Eosinophils % (A) 1 %; HGB 10.1 gm/dL (11.4-16.0); Lymphocytes # (A) 2.3 k/uL (1.0-4.8); Lymphocytes % (A) 22 %; MCH 28.2 pg (25.0-35.0); MCHC 33.7 g/dL (31.0-37.0); MCV 83.7 fL (80.0-100.0); Mean Platelet Volume 8.5; Monocytes # (A) 0.7 k/uL (0-1.0); Monocytes % (A) 6 %; Neutrophils # (A) 7.4 k/uL (1.3-7.7); Neutrophils % (A) 69 %; Platelet Count 268 k/uL (150-450); RBC 3.58 m/uL (3.80-5.40); RDW 14.3 % (11.5-15.5); WBC 10.7 k/uL (3.8-10.6)
[2018-12-22 16:10] LABS: ALT 17 U/L (9-52); AST 16 U/L (14-36); African American GFR (CKD) >90 (>60 ml/min/1.73 sqM); Blood Urea Nitrogen 9 mg/dL (7-17); LDH 322 U/L (313-618); Non-African American GFR(CKD) >90 (>60 ml/min/1.73 sqM); Uric Acid 4.4 mg/dL (3.7-7.4)
--- NOTE | 2018-12-22 17:31 | P.MSEPDOC ---
Presenting Problems - Arrival Data Date of Arrival on Unit: 12/22/18 Time of Arrival on Unit: 14:50 Mode of Transport: Ambulatory - Complaint OB-Reason for Admission/Chief Complaint: Pain Comment: abdominal cramping for 1 hour Medical History - Information : 2 Para: 1 Number of Living Children: 1 - Gestational Age Gestational Age by HECTOR (wks/days): 31 Weeks and 5 Days - History Complications: Preeclampsia Comment: gestational htn with previous , DOM of Dr Bueno this Review of Systems - Review of Systems Constitutional: No problems Breast: No problems ENT: No problems Cardiovascular: No problems Respiratory: No problems Gastrointestinal: No problems Genitourinary: No problems Musculoskeletal: No problems Neurological: No problems Skin: No problems Vital Signs - Temperature Temperature: 97.8 F Temperature Source: Temporal Artery Scan - Pulse Right Sitting Brachial Pulse Rate: 106 Pulse Assessment Method: Automatic Cuff - Respirations Respiratory Rate: 16 Oxygen Delivery Method: Room Air O2 Sat by Pulse Oximetry: 100 - Blood Pressure Right Arm Sitting Blood Pressure: 146/82 Blood Pressure Mean: 103 Blood Pressure Source: Automatic Cuff Medical Screen Scoring (Pre) - Cervical Exam Dilation: Exam Deferred Effacement: Exam Deferred - Uterine Contractions Frequency: N/A Duration: N/A Intensity: N/A - Maternal Vital Signs Maternal Temperature: N/A Maternal Blood Pressure: Systolic >139 = 2 Signs of Preeclampsia: N/A Maternal Respirations: N/A - Maternal Trauma Maternal Trauma: N/A - Assessment - Baby A Baseline FHR: 140 Heart Rate - NICHD Category: Category I (Normal) = 0 NST: Reactive Position: N/A Station: N/A - Total Score - Baby A Total Score - Baby A: 2 - Total Score - Baby B Total Score - Baby B: 2 - Total Score - Baby C Total Score - Baby C: 2 - Level of Risk - Baby A Level of Risk - Baby A: Low (0-5) - Level of Risk - Baby B Level of Risk - Baby B: Low (0-5) - Level of Risk - Baby C Level of Risk - Baby C: Low (0-5) Physician Notification (Pre) - Physician Notified Physician Notified Date: 12/22/18 Physician Notified Time: 13:32 New Order Received: Yes - Notification Comment Comment: pre eclampsia labs and urine, serial bp's, ua, call with results Medical Screen Scoring (Post) - Cervical Exam Dilation: Exam Deferred - Uterine Contractions Frequency: N/A Duration: N/A Intensity: N/A - Maternal Vital Signs Maternal Temperature: N/A Maternal Blood Pressure: N/A Signs of Preeclampsia: N/A Maternal Respirations: N/A - Maternal Trauma Maternal Trauma: N/A - Assessment - Baby A Heart Rate: 140 Heart Rate - NICHD Category: Category I (Normal) = 0 NST: Reactive Position: N/A Station: N/A - Total Score Total Score - Baby A: 0 Total Score - Baby B: 0 Total Score - Baby C: 0 - Post Treatment Level of Risk Post Treatment Level of Risk - Baby A: Low (0-5) Post Treatment Level of Risk - Baby B: Low (0-5) Post Treatment Level of Risk - Baby C: Low (0-5) Physician Notification (Post) - Physician Notified Physician Notified Date: 12/22/18 Physician Notified Time: 15:50 Physician/Practitioner Notified:: laurent Spoke With: laurent New Order Received: Yes - Notification Comment Comment: pih workup, if workup wln pt may be discharged home to follow up with dr bueno at scheduled apppointment on sunday Disposition - Disposition OB Disposition: Discharge to home Discharge Date: 12/22/18 Discharge Time: 16:33 I agree with the RN Medical Screening Exam: Yes Risk & Benefit of care provided described in d/c instruction: Yes Diagnosis: FALSE LABOR BEFORE 37 COMPLETED WEEKS OF GEST, THIRD TRI (This patient presented to labor and delivery with complaints of cramping for 1 hour. Patient's care is with Dr. Bueno [facility]. Evaluation here shows no significant contractions and cervix was not dilated. Patient's initial blood pressure was mildly elevated however repeat was normal, however I did do preeclampsia labs due to patient's history of gestational hypertension with her first . Labs were normal. Patient's felt be stable for discharge home follow up with Dr. Bueno as directed in 48 hours. Patient was instructed that although she is always welcome in our hospital, because her care is at [facility] Dr. Bueno it is in her best interest to go there with future concerns. At this time there is no evidence of maternal or compromise.)
== END 2018-12-22 16:33 | disposition home or self-care (01) ==
LOC: FBPOP 15:01
PROVIDERS: ATTEND Obstetrics & Gynecology
DX: O47.03 False labor before 37 completed weeks of gestation, third trimester (principal); Z3A.31 31 weeks gestation of pregnancy
CPT/HCPCS: 59025; 81001; 82565; 82570; 83615; 84156; 84450; 84460; 84520; 84550; 85025; 99213

== ENCOUNTER → 2019-01-06 | Outpatient (CLI) | payer OTHER ==
--- NOTE | 2019-01-06 16:25 | US ---
EXAMINATION TYPE: US OB >= 14 wk fetus DATE OF EXAM: 01/06/2019 COMPARISON: Prior ultrasound July 30, 2018 CLINICAL HISTORY: Z34.80 Observation of , growth TECHNIQUE: OBTA GESTATIONAL AGE / DATING Physician Established: (33 weeks/6 days) EDC: 02/18/2019 Dates by LMP: (33 weeks/6 days) EDC: 02/18/2019 Dates by First Scan: (34 weeks/2 days) EDC: 02/15/2019 Dates by Current Scan: (32 weeks/2 days) EDC: 03/01/2019 SURVEY IUP: Single PLACENTA: Fundal PREVIA: No Previa BEE: 20.4 cm Normal CERVICAL LENGTH (transabdominal: norm > 3.0cm): 3.8 cm BIOMETRY PRESENTATION: Vertex LIE: Longitudinal BPD: 7.9 cm 31 weeks / 4 days HC: 30.0 cm 33 weeks / 2 days AC: 29.3 cm 33 weeks / 3 days FL: 6.3 cm 32 weeks / 3 days ESTIMATED WEIGHT IN GRAMS: 2082 grams ESTIMATED WEIGHT IN LBS/OZ: 4 lbs. 9 oz. WEIGHT PERCENTAGE BASED ON ESTABLISHED DATES: 18% HC/AC: 1.0 Normal FL/AC: 21.3 Normal HEART RATE: 141 bpm RHYTHM: Normal Single live intrauterine gestation is redemonstrated. No ultrasound evidence for placenta previa. Amn iotic fluid index calculated upper limits of normal. No cervical thinning. Normal cephalad presentati on currently seen. biometry measurements congruent and within normal limits. IMPRESSION: As above.
== END | disposition home or self-care (01) ==
LOC: RADUSWWP 15:46
PROVIDERS: ATTEND Obstetrics & Gynecology
DX: Z34.80 Encounter for supervision of other normal pregnancy, unspecified trimester (principal); Z3A.00 Weeks of gestation of pregnancy not specified
CPT/HCPCS: 76805

== ENCOUNTER 2019-02-11 03:02 | Inpatient (IN) | payer OTHER ==
[2019-02-11] MEDS ORDERED: LABETALOL SYRINGE 5 MG/ML IVP PRN (03:34)
[2019-02-11] MEDS ORDERED: hydrALAZINE HCL 20 MG/ML 1 ML VIAL IVP PRN (03:34)
[2019-02-11] MEDS: LACTATED RINGERS 1,000 ML IV SCH ×3 (03:50→12:00)
[2019-02-11] MEDS ORDERED: LABETALOL 5 MG/ML VIAL MDV IVP PRN (04:00)
[2019-02-11 04:14] LABS: Basophils # (A) 0.1 k/uL (0-0.2); Basophils % (A) 1 %; Eosinophils # (A) 0.1 k/uL (0-0.7); Eosinophils % (A) 1 %; HCT 36.6 % (34.0-46.0); HGB 11.5 gm/dL (11.4-16.0); Hypochromasia Slight; Lymphocytes # (A) 3.2 k/uL (1.0-4.8); Lymphocytes % (A) 25 %; MCHC 31.4 g/dL (31.0-37.0); MCV 82.8 fL (80.0-100.0); Mean Platelet Volume 8.8; Monocytes # (A) 0.6 k/uL (0-1.0); Monocytes % (A) 5 %; Neutrophils # (A) 8.4 k/uL (1.3-7.7); Neutrophils % (A) 66 %; Platelet Count 288 k/uL (150-450); Poikilocytosis Slight; RBC 4.42 m/uL (3.80-5.40); RDW 14.4 % (11.5-15.5); WBC 12.7 k/uL (3.8-10.6)
[2019-02-11 04:16] LABS: Appearance,Urine Clear (Clear); Bilirubin,Urine Negative (Negative); Blood,Urine Moderate (Negative); Color,Urine Yellow; Glucose,Urine (UA) Negative (Negative); Ketones,Urine Negative (Negative); Leukocyte Esterase,Urine Small (Negative); Mucus,Urine Rare /hpf; Nitrite,Urine Negative (Negative); PH, Urine 6.5 (5.0-8.0); Protein,Urine Trace (Negative); RBC,Urine 4 /hpf (0-5); Specific Gravity,Urine 1.012 (1.001-1.035); Squamous Epithelial Cell,Urine 2 /hpf (0-4); Urobilinogen,Urine <2.0 mg/dL (<2.0); WBC,Urine 4 /hpf (0-5)
[2019-02-11 04:25] LABS: ALT 18 U/L (4-34); AST 29 U/L (14-36); African American GFR (CKD) >90 (>60 ml/min/1.73 sqM); Blood Urea Nitrogen 7 mg/dL (7-17); LDH 516 U/L (313-618); Magnesium 1.6 mg/dL (1.6-2.3); Non-African American GFR(CKD) >90 (>60 ml/min/1.73 sqM); Uric Acid 4.6 mg/dL (3.7-7.4)
[2019-02-11 04:26] LABS: Creatinine,Urine Random 110.6 mg/dL
[2019-02-11] MEDS: LABETALOL 5 MG/ML VIAL MDV IVP PRN ×2 (04:26→04:56)
[2019-02-11 04:45] LABS: INR 0.9 (<1.2); Prothrombin Time 9.4 sec (9.0-12.0)
[2019-02-11] MEDS ORDERED: LIDOCAINE 0.5% (PF) 5 MG/ML (50 ML SDV) SQ PRN (05:03)
[2019-02-11] MEDS ORDERED: CARBOPROST TROMETHAMINE 250 MCG/ML 1 ML AMP IM PRN (05:03)
[2019-02-11] MEDS ORDERED: TERBUTALINE 1 MG/ML VIAL SQ PRN (05:03)
[2019-02-11] MEDS ORDERED: OXYTOCIN 10 UNIT/ML 1 ML VIAL IM PRN (05:03)
[2019-02-11] MEDS ORDERED: METHYLERGONOVINE 0.2 MG/ML 1 ML AMP IM PRN (05:03)
[2019-02-11] MEDS ORDERED: PENICILLIN G POTASSIUM 5,000,000 UNIT in DEXTROSE 5% IN WATER 100 ML IVPB ONE ×2 (05:15)
[2019-02-11] MEDS: OXYTOCIN 30 UNITS/500 ML NS 30 UNIT in SALINE 1 500ML.BAG IV SCH (05:31)
[2019-02-11 06:00] LABS: Amphetamine Screen,Urine Not Detected (NotDetected); Barbiturate Screen,Urine Not Detected (NotDetected); Benzodiazepines Screen,Urine Not Detected (NotDetected); Cocaine Screen,Urine Not Detected (NotDetected); Methadone Screen, Urine Not Detected (NotDetected); Opiate Screen,Urine Not Detected (NotDetected); Oxycodone Screen, Urine Not Detected (NotDetected); Phencyclidine Screen,Urine Not Detected (NotDetected); Tricyclic Antidepressant,Urine Not Detected (NotDetected); Urn Cannabinoid Scrn Not Detected (NotDetected)
--- NOTE | 2019-02-11 08:47 | P.HPOB ---
History of Present Illness H&P Date: 02/11/19 Chief Complaint: Pelvic pressure This is a 23-year-old 2 para 1001 woman who is admitted with elevated blood pressures at term. She is received her care through Dr. Bueno and has an estimated due date of 02/18/19 20 based on 12 week ultrasound. That makes her 39 weeks. She reports she was awoken in the middle of the night with cramping and pelvic pressure with possible urge to push. She was concerned therefore came to the hospital. Upon initial evaluation she is not found to be actively noel nor was her cervix dilated however her blood pressures were elevated. Initial blood pressures were in the 180s over 110s. She denies problems with elevated blood pressure in this however did have elevated blood pressure at term with her previous delivery in 2015. She received IV labetalol 2 which did bring her blood pressures down into the 130s to 140s over 80s and 90s. She denies headaches, visual changes, upper abdominal pain, increased swelling, vaginal bleeding or leakage of fluids. The baby has been active. Patient reports she is group B strep positive. Review of records obtained from [facility] show that she has possible anti-M antibodies and the patient confirms she has been followed every 2 weeks with titers which have remained low. Further records are pending. She had an ultrasound at this institution on 01/06/2019 which showed on the eye fundal placenta, BEE of 20 cm and estimated weight of 18th percentile. Obstetric history is significant for a 38 week normal spontaneous vaginal del davidson in 2016. This was induced after presentation in early labor with elevated blood pressures. This infant weighed 5 lbs. 9 oz. She was group B strep positive. Review of Systems All systems: negative Past Medical History Past Medical History: Hypertension Additional Past Medical History / Comment(s): Positive anti-M antibody. History of Any Multi-Drug Resistant Organisms: None Reported Past Surgical History: No Surgical Hx Reported Past Anesthesia/Blood Transfusion Reactions: No Reported Reaction Past Psychological History: Anxiety, Depression Additional Psychological History / Comment(s): medicated before Smoking Status: Current every day smoker Past Alcohol Use History: None Reported, Occasional Past Drug Use History: None Reported - Past Family History Mother Family Medical History: No Reported History Medications and Allergies Home Medications Medication Instructions Recorded Confirmed Type Pnv No.95/Ferrous Fum/Folic AC 1 tab PO ONCE 12/02/18 02/11/19 History [ Multivitamin Tablet] Allergies Allergy/AdvReac Type Severity Reaction Status Date / Time No Known Allergies Allergy Verified 02/11/19 03:22 Exam Vital Signs Temp Pulse Resp BP 02/11/19 04:45 151/96 02/11/19 03:32 97.7 F 99 18 188/117 Intake and Output 02/10/19 02/11/19 02/11/19 22:59 06:59 14:59 Other: Weight 93.894 kg This is a pleasant, somewhat uncomfortable-appearing -[place] female who is visibly gravid. HEENT exam is unremarkable. Her breathing is unlabored and her heart is of regular rate and rhythm. The abdomen is soft, gravid and nontender. On pelvic examination the cervix is 3+ centimeters dilated, 80% e ffaced, vertex in the -2 station. Artificial rupture of membranes is undertaken and clear fluid is noted. heart tones are category 1 and she is irregularly noel with Pitocin augmentation. She has 1+ bilateral lower extremity edema and 3+ deep tendon patellar reflexes. Results Result Diagrams: 02/11/19 03:50 02/11/19 03:50 Abnormal Lab Results - Last 24 Hours (Table) 02/11/19 02/11/19 02/11/19 Range/Units 03:50 03:50 03:50 WBC 12.7 H (3.8-10.6) k/uL Neutrophils # 8.4 H (1.3-7.7) k/uL Fibrinogen (200-500) mg/dL Urine Protein Trace H (Negative) Urine Blood Moderate H (Negative) Ur Leukocyte Esterase Small H (Negative) Urine Mucus Rare H (None) /hpf U Random Total Protein 41 H (<12) mg/dL 02/11/19 Range/Units 03:50 WBC (3.8-10.6) k/uL Neutrophils # (1.3-7.7) k/uL Fibrinogen 526 H (200-500) mg/dL Urine Protein (Negative) Urine Blood (Negative) Ur Leukocyte Esterase (Negative) Urine Mucus (None) /hpf U Random Total Protein (<12) mg/dL Assessment and Plan (1) 39 weeks gestation of Current Visit: Yes Status: Acute Code(s): Z3A.39 - 39 WEEKS GESTATION OF SNOMED Code(s): 25698447 (2) Anti-M isoimmunization affecting , antepartum Current Visit: No Status: Acute Code(s): O36.1990 - MATERNAL CARE FOR OTH ISOIMMUNIZATION, UNSP TRIMESTER, UNSP SNOMED Code(s): 18054516 (3) Gestational hypertension Current Visit: No Status: Acute Code(s): O13.9 - GESTATIONAL HTN W/O SIGNIFICANT PROTEINURIA, UNSP TRIMESTER SNOMED Code(s): 055161481 (4) Group B streptococcal infection Current Visit: No Status: Acute Code(s): A49.1 - STREPTOCOCCAL INFECTION, UNSPECIFIED SITE SNOMED Code(s): 422049897 Plan: 23-year-old 2 para 1 woman at 39 weeks gestation who presents with elevated blood pressures, no evidence of preeclampsia based on symptoms or labs. She is undergoing Pitocin induction of labor and is receiving group B strep prophylactic antibiotics. 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 status is currently reassuring by external monitoring. Blood pressures are stable and she has required no further intervention after her initial 2 doses of IV labetalol. She may have an epidu ral anesthetic upon request in active labor and I anticipate normal spontaneous vaginal delivery.
[2019-02-11] MEDS: PENICILLIN G POTASSIUM 2,500,000 UNIT in DEXTROSE 5% IN WATER 100 ML IVPB SCH ×2 (09:51)
[2019-02-11] MEDS ORDERED: WITCH HAZEL 1 EACH MED..PAD TOPICAL PRN (13:18)
[2019-02-11] MEDS ORDERED: ZOLPIDEM 5 MG TAB PO PRN (13:18)
[2019-02-11] MEDS ORDERED: diphenhydrAMINE 50 MG/ML 1 ML VIAL IVP PRN ×2 (13:18)
[2019-02-11] MEDS ORDERED: BENZOCAINE/MENTHOL SPRAY 1 GM/SPRAY AEROSOL TOPICAL PRN (13:18)
[2019-02-11] MEDS ORDERED: HYDROCORTISONE 2.5% RECTAL CREAM 30 GM TUBE RECTAL PRN (13:18)
[2019-02-11] MEDS ORDERED: diphenhydrAMINE 25 MG CAP PO PRN (13:18)
[2019-02-11] MEDS ORDERED: LANOLIN CREAM 5 GM TUBE TOPICAL PRN (13:18)
[2019-02-11] MEDS ORDERED: SIMETHICONE 80 MG CHEWABLE PO PRN (13:18)
[2019-02-11] MEDS ORDERED: diphenhydrAMINE 50 MG CAP PO PRN (13:18)
--- NOTE | 2019-02-11 13:18 | P.PROBDLV ---
Vaginal Delivery Note - . Vaginal Delivery Note: Findings: Male infant in the left occiput anterior position with nuchal cord 1. Apgars of 9 at 1 minute and 9 at 5 minutes. Weight 5 lbs. 11 oz. Intact perineum. Intact, three-vessel cord placenta. EBL 150 mL's. Delivery summary: This is a 23-year-old 2 para 1 woman who presented after having HER care at an [facility] facility. She was 39 weeks gestation was complaining of pressure in the pelvic area and urge to push. Although she was not actively laboring and her cervix was only 1 cm dilated she was found to be significantly hypertensive. She received 2 doses of IV labetalol and she was admitted for induction of labor. She did receive a Pitocin induction of labor and actually had a rather rapid course. She had labile blood pressures after first stage of labor ranging anywhere from the 1 teens over 60s to 150s over 100s. Her preeclamptic evaluation was negative by laboratory data. She did receive an epidural anesthetic. She reached complete cervical dilation with reassuring heart tones throughout. She commenced pushing with excellent maternal effort. She had a rapid second stage of labor. With she was repositioned, prepped and draped in the dorsal modified Keo position. With additional effort the head delivered from the left occiput anterior position. Nuchal cord 1 was reduced. Nose and mouth were bulb suctioned on the perineum. The anterior and posterior shoulders were delivered very rapidly with 1 push and the rest the infant was delivered onto the field. The was placed on the maternal abdomen where the nose and mouth were further bulb suctioned. The cord was clamped after allowing for cessation of pulsation of the cord. Apgars were 9 at 1 minute and 9 at 5 minutes and weight was 5 lbs. 11 oz. The perineum was inspected and no lacerations were noted. An intact, three-vessel cord placenta was delivered after a rapid third stage of labor. Placenta appeared intact. The uterus was massaged and was noted to be firm at the level of the umbilicus. The patient received Pitocin following the third stage of labor. The vagina and labia and cervix are reinspected no further lacerations were noted. The uterus was firm. Both mother and were doing well post delivery in the room. All counts were correct.
[2019-02-11] MEDS ORDERED: OXYTOCIN 20 UNITS/1000 ML NS 1,000 ML IV SCH (13:30)
[2019-02-11] MEDS: IBUPROFEN 600 MG TAB PO PRN ×2 (16:48→22:35)
[2019-02-11] MEDS: ACETAMINOPHEN TAB 325 MG TAB PO PRN (18:48)
[2019-02-11] MEDS: SENNOSIDES-DOCUSATE SODIUM 1 EACH TAB PO SCH (20:19)
[2019-02-12 06:45] LABS: Basophils % (A) 0 %; Eosinophils # (A) 0.1 k/uL (0-0.7); Eosinophils % (A) 1 %; HCT 28.2 % (34.0-46.0); Hypochromasia Slight; Lymphocytes % (A) 21 %; MCHC 32.9 g/dL (31.0-37.0); Mean Platelet Volume 9.3; Monocytes # (A) 0.8 k/uL (0-1.0); Monocytes % (A) 6 %; Neutrophils # (A) 10.1 k/uL (1.3-7.7); Neutrophils % (A) 71 %; Platelet Count 241 k/uL (150-450); Poikilocytosis Slight; RBC 3.44 m/uL (3.80-5.40); RDW 14.3 % (11.5-15.5); WBC 14.3 k/uL (3.8-10.6)
[2019-02-12 06:50] LABS: HGB 9.3 gm/dL (11.4-16.0)
--- NOTE | 2019-02-12 07:33 | P.PNOBGVD ---
Subjective - Subjective Principal diagnosis: day 1 Interval history: Feeling well but reporting heavy lochia and cramping yesterday afternoon and evening. Patient reports: Reports appetite normal, Reports voiding normally, Reports pain well controlled, Reports ambulating normally [place]: doing well Objective - Latest Vital Signs Latest vital signs: Vital Signs Temp Pulse Resp BP Pulse Ox 02/12/19 03:52 98.5 F 80 18 138/72 02/12/19 00:00 98.2 F 80 16 143/71 02/11/19 20:00 97.6 F 72 18 163/73 02/11/19 16:00 98.3 F 92 18 138/62 98 02/11/19 15:20 97 16 135/57 02/11/19 14:50 91 16 142/75 02/11/19 14:20 78 16 142/72 02/11/19 14:05 98.7 F 101 H 16 145/77 02/11/19 13:50 85 16 127/74 02/11/19 13:35 101 H 16 121/64 02/11/19 13:20 98.4 F 87 18 144/67 Intake and Output 02/11/19 02/12/19 02/12/19 22:59 06:59 14:59 Other: # Voids 1 1 - Exam Extremities: Present: normal, edema. Absent: tenderness Abdomen: Present: normal appearance, soft. Absent: tenderness Uterus: Present: normal, firm, tenderness - Labs Labs: Abnormal Lab Results - Last 24 Hours (Table) 02/12/19 Range/Units 06:05 WBC 14.3 H (3.8-10.6) k/uL RBC 3.44 L (3.80-5.40) m/uL Hgb 9.3 L D (11.4-16.0) gm/dL Hct 28.2 L (34.0-46.0) % Neutrophils # 10.1 H (1.3-7.7) k/uL Assessment and Plan (1) 39 weeks gestation of Current Visit: Yes Status: Acute Code(s): Z3A.39 - 39 WEEKS GESTATION OF SNOMED Code(s): 09175094 (2) Anti-M isoimmunization affecting , antepartum Current Visit: No Status: Acute Code(s): O36.1990 - MATERNAL CARE FOR OTH ISOIMMUNIZATION, UNSP TRIMESTER, UNSP SNOMED Code(s): 35807511 (3) Gestational hypertension Current Visit: No Status: Acute Code(s): O13.9 - GESTATIONAL HTN W/O SIGNIFICANT PROTEINURIA, UNSP TRIMESTER SNOMED Code(s): 307948159 (4) Group B streptococcal infection Current Visit: No Status: Acute Code(s): A49.1 - STREPTOCOCCAL INFECTION, UNSPECIFIED SITE SNOMED Code(s): 853315905 (5) Normal spontaneous vaginal delivery Current Visit: Yes Status: Acute Code(s): O80 - ENCOUNTER FOR FULL-TERM UNCOMPLICATED DELIVERY SNOMED Code(s): 39655918 (6) Nuchal cord Current Visit: Yes Status: Acute Code(s): O69.82X0 - LABOR AND DEL COMP BY [facility] CORD ENTANGLE, W/O COMPRSN, UNSP SNOMED Code(s): 294605965 Plan: 23-year-old 2 para 2 woman day 1 status post normal spontaneous vaginal delivery. Blood pressures were in the 130s to 160s over 70s throughout the night. She remains asymptomatic with no signs of preeclampsia. Anticipate discharge home tomorrow.
--- NOTE | 2019-02-12 07:36 | P.MSEPDOC ---
Presenting Problems - Arrival Data Date of Arrival on Unit: 02/11/19 Time of Arrival on Unit: 04:45 Mode of Transport: Wheelchair - Complaint OB-Reason for Admission/Chief Complaint: Possible Onset of Labor Medical History - Information : 2 Para: 1 Term: 1 : 0 Abortions: Spontaneous or Elective: 0 Number of Living Children: 1 - Gestational Age Gestational Age by HECTOR (wks/days): 39 Weeks and 0 Days - History Complications: Smoker Comment: DOM, elevated BPs Review of Systems - Review of Systems Constitutional: No problems Breast: No problems ENT: No problems Cardiovascular: No problems Respiratory: No problems Gastrointestinal: No problems Genitourinary: No problems Musculoskeletal: No problems Neurological: No problems Skin: No problems Vital Signs - Temperature Temperature: 98.5 F Temperature Source: Oral - Pulse Right Pulse Rate: 80 Pulse Assessment Method: Automatic Cuff - Respirations Respiratory Rate: 18 Oxygen Delivery Method: Room Air - Blood Pressure Right Arm Blood Pressure: 138/72 Blood Pressure Mean: 94 Blood Pressure Source: Automatic Cuff Medical Screen Scoring (Pre) - Cervical Exam Dilation: 1-3 cm = 1 - Uterine Contractions Frequency: > 5 minutes apart = 1 Duration: > 40 seconds = 2 - Maternal Vital Signs Maternal Blood Pressure: >159/109 = 8 Signs of Preeclampsia: N/A Maternal Respirations: N/A - Maternal Trauma Maternal Trauma: N/A - Assessment - Baby A Baseline FHR: 135 Heart Rate - NICHD Category: Category I (Normal) = 0 NST: Reactive Position: N/A - Total Score - Baby A Total Score - Baby A: 12 - Total Score - Baby B Total Score - Baby B: 12 - Total Score - Baby C Total Score - Baby C: 12 - Level of Risk - Baby A Level of Risk - Baby A: High (10+) - Level of Risk - Baby B Level of Risk - Baby B: High (10+) - Level of Risk - Baby C Level of Risk - Baby C: High (10+) Physician Notification (Pre) - Physician Notified Physician Notified Date: 02/11/19 Physician Notified Time: 03:32 - Notification Comment Comment: called Dr Nguyen at home. Reported on pts c/o cntrx q20, urge to push,. pelvic pressure. Reported on fhts, cntrx pattern, SVE, vitals- elevated BPs. Reported on. DOM- pt denies any other complications or BP hx with either . Reported on notes. from last delivery here. Orders to keep in triage at this time, initiate labetalol. protocol, PI labs. Call if BPs are not responding to meds or for any other. needs/results. Medical Screen Scoring (Post) - Uterine Contractions Frequency: > or = 36 weeks =2 Duration: > 40 seconds = 2 - Maternal Vital Signs Maternal Blood Pressure: Systolic >139 = 2 Signs of Preeclampsia: N/A Maternal Respirations: N/A - Maternal Trauma Maternal Trauma: N/A - Assessment - Baby A Heart Rate: 140 Heart Rate - NICHD Category: Category I (Normal) = 0 NST: Reactive Position: N/A - Total Score Total Score - Baby A: 6 Total Score - Baby B: 6 Total Score - Baby C: 6 - Post Treatment Level of Risk Post Treatment Level of Risk - Baby A: Medium (6-9) Physician Notification (Post) - Physician Notified Physician Notified Date: 02/11/19 Physician Notified Time: 04:50 Physician/Practitioner Notified:: Patrick New Order Received: Yes - Notification Comment Comment: admit for labor, start pitocin, start abx, give 20mg labetalol IVP x1 now, then continue with protocol if needed for parameters Disposition - Disposition OB Disposition: Admit, LDRP Suite Transferred to:: 16 I agree with the RN Medical Screening Exam: Yes Risk & Benefit of care provided described in d/c instruction: Yes Diagnosis: 39 WEEKS GESTATION OF
[2019-02-12] MEDS ORDERED: ROPIVACAINE 100 MG, fentaNYL (PF) 200 MCG in SODIUM CHLORIDE 0.9% 76 ML EPIDURAL ONE (08:32)
[2019-02-12] MEDS: IBUPROFEN 600 MG TAB PO PRN ×2 (11:48→19:50)
[2019-02-12] MEDS: ACETAMINOPHEN TAB 325 MG TAB PO PRN (17:41)
[2019-02-12] MEDS: LACTATED RINGERS 1,000 ML IV SCH ×3 (20:13→20:15)
[2019-02-12] MEDS: PENICILLIN G POTASSIUM 2,500,000 UNIT in DEXTROSE 5% IN WATER 100 ML IVPB SCH ×4 (20:14→20:15)
[2019-02-12] MEDS: OXYTOCIN 30 UNITS/500 ML NS 30 UNIT in SALINE 1 500ML.BAG IV SCH (20:15)
[2019-02-12] MEDS: SENNOSIDES-DOCUSATE SODIUM 1 EACH TAB PO SCH (20:16)
[2019-02-13] MEDS: IBUPROFEN 600 MG TAB PO PRN ×2 (03:33→08:20)
[2019-02-13] MEDS: SENNOSIDES-DOCUSATE SODIUM 1 EACH TAB PO SCH (08:20)
[2019-02-13 08:23] VITALS: BP 149/83; PULSE 80; RESP 16; TEMP 97.4
--- NOTE | 2019-02-13 08:35 | P.DS ---
Providers Date of admission: 02/11/19 05:00 Expected date of discharge: 02/13/19 Attending physician: Chichi Nguyen Primary care physician: Chichi Nguyen - Discharge Diagnosis(es) (1) 39 weeks gestation of Current Visit: Yes Status: Acute (2) Anti-M isoimmunization affecting , antepartum Current Visit: No Status: Acute (3) Gestational hypertension Current Visit: No Status: Acute (4) Group B streptococcal infection Current Visit: No Status: Acute (5) Normal spontaneous vaginal delivery Current Visit: Yes Status: Acute (6) Nuchal cord Current Visit: Yes Status: Acute Hospital Course: This is a 23 year old 2 now para 2 woman who presented at 39 weeks gestation with possible labor and significant hypertension. She was admitted secondary to the hypertension and her labor was induced. She had no evidence of preeclampsia based on labs or proteinuria. Following admission she underwent a Pitocin induction of labor. She received an epidural anesthetic. She had reassuring heart tones throughout her labor. She went on to have a rapid delivery of a liveborn male over an intact perineum weighing 5 lbs. 11 oz. with Apgars of 9 at 1 minute and 9 at 5 minutes. Her blood pressures were somewhat labile and her course ranging from the 130s to 160s over 70s to 90s. The majority of her blood pressures were in the 130s over 70s range. She remained completely asymptomatic from her preeclamptic standpoint. She had moderate to heavy lochia day #1 however this resolved by day #2. She was therefore discharged home on day #2 with instructions for follow-up blood pressure checks as well as instructions. Signs and symptoms of hypertension were reviewed. Procedures: Normal spontaneous vaginal delivery Patient Condition at Discharge: Good Plan - Discharge Summary New Discharge Prescriptions: No Action Pnv No.95/Ferrous Fum/Folic AC [ Multivitamin Tablet] 1 tab PO ONCE Discharge Medication List Pnv No.95/Ferrous Fum/Folic AC [ Multivitamin Tablet] 1 tab PO ONCE 12/02/18 [History] Follow up Appointment(s)/Referral(s): Antwan Bueno DO [REFERRING] - 1 Week (Follow-up with regular twist tester, Dr. Bueno for blood pressure check in 1-2 weeks and for care.) Activity/Diet/Wound Care/Special Instructions: Follow-up in the office in 6 weeks . Call with any concerning signs or symptoms including heavy vaginal bleeding, severe abdominal pain, fever greater than 101, headaches, swelling or redness of the lower extremities, foul vaginal discharge, or signs of depression. Nothing in the vagina for 6 weeks after delivery, specifically no intercourse. Discharge Disposition: HOME SELF-CARE
== END 2019-02-13 11:55 | disposition home or self-care (01) | DRG 807 ==
LOC: FBPOP 03:02 → 4FBP 05:00
PROVIDERS: ADMIT Obstetrics & Gynecology; ATTEND Obstetrics & Gynecology
PROC: 10E0XZZ Delivery of Products of Conception, External Approach (ICD-10-PCS; principal; 2019-02-11)
PROC: 3E033VJ Introduction of Other Hormone into Peripheral Vein, Percutaneous Approach (ICD-10-PCS; 2019-02-11)
PROC: 00HU33Z Insertion of Infusion Device into Spinal Canal, Percutaneous Approach (ICD-10-PCS; 2019-02-11)
PROC: 3E0R3BZ Introduction of Anesthetic Agent into Spinal Canal, Percutaneous Approach (ICD-10-PCS; 2019-02-11)
DX: O36.1930 Maternal care for other isoimmunization, third trimester, not applicable or unspecified (principal); Z37.0 Single live birth; O62.3 Precipitate labor; O69.81X0 Labor and delivery complicated by cord around neck, without compression, not applicable or unspecified; O99.344 Other mental disorders complicating childbirth; O99.334 Smoking (tobacco) complicating childbirth; O13.4 Gestational [pregnancy-induced] hypertension without significant proteinuria, complicating childbirth; Z3A.39 39 weeks gestation of pregnancy; B95.1 Streptococcus, group B, as the cause of diseases classified elsewhere; F17.210 Nicotine dependence, cigarettes, uncomplicated; F32.9 Major depressive disorder, single episode, unspecified; F41.9 Anxiety disorder, unspecified; O99.824 Streptococcus B carrier state complicating childbirth
CPT/HCPCS: 59025; 80306; 81001; 82565; 82570; 83615; 83735; 84156; 84450; 84460; 84520; 84550; 85025; 85384; 85610; 85730; 86850; 86870; 86880; 86900; 86901; 86902; 96360; 96375; 99215

== ENCOUNTER → 2019-08-21 | Outpatient (CLI) | payer OTHER | END | disposition home or self-care (01) | LOC: LABWHC1 13:30 | PROVIDERS: ATTEND Emergency Medicine | DX: Z20.828 Contact with and (suspected) exposure to other viral communicable diseases (principal) | CPT/HCPCS: U0003; C9803 ==

== ENCOUNTER 2021-12-02 11:16 | Observation (INO) | payer OTHER ==
[2021-12-02] MEDS ORDERED: MAG HYDROX/AL HYDROX/SIMETH 30 ML, HYOSCYAMINE ELIXIR 10 ML, LIDOCAINE VISCOUS 2% 10 ML PO STA ×3 (12:11)
--- NOTE | 2021-12-02 12:20 | ED ---
General Adult HPI - General Chief complaint: Chest Pain Stated complaint: Chest pain Time Seen by Provider: 12/02/21 11:52 Source: patient Mode of arrival: ambulatory Limitations: no limitations - History of Present Illness Initial comments: Dictation was produced using [employer] dictation software. please excuse any grammatical, word or spelling errors. Chief Complaint: 26-year-old male presents to emergency department for 2 days of substernal chest pain History of Present Illness: 26-year-old female she has no significant past med ical history. Patient reports midsternal chest pain that began yesterday. Patient states that it's colicky in nature. Denies any nausea. States her symptoms are worse with oral intake. Patient has any cardiac history. No associated diaphoresis. Does come with nausea. No radiation of symptoms to the jaw, shoulder or upper extremity. The ROS documented in this emergency department record has been reviewed and confirmed by me. Those systems with pertinent positive or negative responses h ave been documented in the HPI. All other systems are other negative and/or noncontributory. PHYSICAL EXAM: General Impression: Alert and oriented x3, not in acute distress HEENT: Normocephalic atraumatic, extra-ocular movements intact, pupils equal and reactive to light bilaterally, mucous membranes moist. Cardiovascular: Heart regular rate and rhythm Chest: Able to complete full sentences, no retractions, no tachypnea Abdomen: abdomen soft, non-tender, non-distended, no organomegaly Musculoskeletal: Pulses present and equal in all extremities, no peripheral edema Motor: no focal deficits noted Neurological: CN II-XII grossly intact, no focal motor or sensory deficits noted Skin: Intact with no visualized rashes Psych: Normal affect and mood ED course: 26-year-old female presents to the emergency room for a typical chest pain with typical features. Vital Signs upon arrival are within acceptable limits. EKG does not show any signs of ischemia or infarction. Laboratory evaluation obtained. CBC unremarkable. D-dimer is negative. Metabolic panel is negative. Troponin is 0.017. Urine hCG is negative. Chest x-ray is nonacute. Patient given GI cocktail given that she reports worsening symptoms with oral intake. Patient reevaluated after a GI cocktail with no improvement of symptoms. Patient is reevaluated at 1:50 PM findings to medical condition. Given patient's mildly elevated troponin with ongoing chest symptoms she will be admitted to observation for so troponins, cardiology consultation. Admitted to [facility]. EKG interpretation: Ventricular rate 77, sinus rhythm,. Interval 140, QS 93, QTc 386. No AL prolongation, no QTC prolongation, no ST or T-wave changes noted. Overall, this EKG is unremarkable - Related Data Home Medications Medication Instructions Recorded Confirmed No Known Home Medications 12/02/21 12/02/21 Allergies Allergy/AdvReac Type Severity Reaction Status Date / Time No Known Allergies Allergy Verified 12/02/21 11:20 Review of Systems ROS Statement: Those systems with pertinent positive or pertinent negative responses have been documented in the HPI. ROS Other: All systems not noted in ROS Statement are negative. Past Medical History Past Medical History: Hypertension Additional Past Medical History / Comment(s): Positive anti-M antibody. History of Any Multi-Drug Resistant Organisms: None Reported Past Surgical History: No Surgical Hx Reported Past Anesthesia/Blood Transfusion Reactions: No Reported Reaction Past Psychological History: Anxiety, Depression Smoking Status: Current every day smoker Past Alcohol Use History: Occasional Past Drug Use History: None Reported - Past Family History Mother Family Medical History: No Reported History General Exam Limitations: no limitations Course Vital Signs 12/02/21 12/02/21 11:18 13:00 Temperature 98.1 F Pulse Rate 88 85 Respiratory 16 18 Rate Blood Pressure 128/93 133/91 O2 Sat by Pulse 100 100 Oximetry Medical Decision Making - Lab Data Result diagrams: 12/02/21 12:13 12/02/21 12:13 Lab Results 12/02/21 12/02/21 12/02/21 Range/Units 12:07 12:13 12:13 WBC 7.9 (3.8-10.6) k/uL RBC 4.49 (3.80-5.40) m/uL Hgb 12.7 (11.4-16.0) gm/dL Hct 38.1 (34.0-46.0) % MCV 84.9 (80.0-100.0) fL MCH 28.2 (25.0-35.0) pg MCHC 33.2 (31.0-37.0) g/dL RDW 14.5 (11.5-15.5) % Plt Count 271 (150-450) k/uL MPV 8.2 Neutrophils % 55 % Lymphocytes % 38 % Monocytes % 4 % Eosinophils % 2 % Basophils % 0 % Neutrophils # 4.4 (1.3-7.7) k/uL Lymphocytes # 3.0 (1.0-4.8) k/uL Monocytes # 0.3 (0-1.0) k/uL Eosinophils # 0.2 (0-0.7) k/uL Basophils # 0.0 (0-0.2) k/uL D-Dimer 0.18 (<0.60) mg/L FEU Sodium (137-145) mmol/L Potassium (3.5-5.1) mmol/L Chloride (98-107) mmol/L Carbon Dioxide (22-30) mmol/L Anion Gap mmol/L BUN (7-17) mg/dL Creatinine (0.52-1.04) mg/dL Est GFR (CKD-EPI)AfAm (>60 ml/min/1.73 sqM) Est GFR (CKD-EPI)NonAf (>60 ml/min/1.73 sqM) Glucose (74-99) mg/dL Calcium (8.4-10.2) mg/dL Troponin I (0.000-0.034) ng/mL Urine HCG, Qual Not Detected (Not Detectd) 12/02/21 12/02/21 Range/Units 12:13 12:13 WBC (3.8-10.6) k/uL RBC (3.80-5.40) m/uL Hgb (11.4-16.0) gm/dL Hct (34.0-46.0) % MCV (80.0-100.0) fL MCH (25.0-35.0) pg MCHC (31.0-37.0) g/dL RDW (11.5-15.5) % Plt Count (150-450) k/uL MPV Neutrophils % % Lymphocytes % % Monocytes % % Eosinophils % % Basophils % % Neutrophils # (1.3-7.7) k/uL Lymphocytes # (1.0-4.8) k/uL Monocytes # (0-1.0) k/uL Eosinophils # (0-0.7) k/uL Basophils # (0-0.2) k/uL D-Dimer (<0.60) mg/L FEU Sodium 138 (137-145) mmol/L Potassium 4.2 (3.5-5.1) mmol/L Chloride 103 (98-107) mmol/L Carbon Dioxide 27 (22-30) mmol/L Anion Gap 8 mmol/L BUN 16 (7-17) mg/dL Creatinine 0.77 (0.52-1.04) mg/dL Est GFR (CKD-EPI)AfAm >90 (>60 ml/min/1.73 sqM) Est GFR (CKD-EPI)NonAf >90 (>60 ml/min/1.73 sqM) Glucose 95 (74-99) mg/dL Calcium 9.5 (8.4-10.2) mg/dL Troponin I 0.017 (0.000-0.034) ng/mL Urine HCG, Qual (Not Detectd) Disposition Clinical Impression: Chest pain Disposition: ADMITTED IP TO THIS HOSP Condition: Fair Referrals: None,Stated [Primary Care Provider] - 1-2 days Decision Time: 13:48
[2021-12-02 12:28] LABS: Basophils % (A) 0 %; Eosinophils # (A) 0.2 k/uL (0-0.7); Eosinophils % (A) 2 %; HCT 38.1 % (34.0-46.0); HGB 12.7 gm/dL (11.4-16.0); Lymphocytes % (A) 38 %; MCH 28.2 pg (25.0-35.0); MCHC 33.2 g/dL (31.0-37.0); MCV 84.9 fL (80.0-100.0); Mean Platelet Volume 8.2; Monocytes # (A) 0.3 k/uL (0-1.0); Monocytes % (A) 4 %; Neutrophils # (A) 4.4 k/uL (1.3-7.7); Neutrophils % (A) 55 %; Platelet Count 271 k/uL (150-450); RBC 4.49 m/uL (3.80-5.40); RDW 14.5 % (11.5-15.5); WBC 7.9 k/uL (3.8-10.6)
[2021-12-02 12:41] LABS: African American GFR (CKD) >90 (>60 ml/min/1.73 sqM); Anion Gap 8 mmol/L; Blood Urea Nitrogen 16 mg/dL (7-17); Calcium 9.5 mg/dL (8.4-10.2); Carbon Dioxide 27 mmol/L (22-30); Chloride 103 mmol/L (98-107); Glucose 95 mg/dL (74-99); Non-African American GFR(CKD) >90 (>60 ml/min/1.73 sqM); Potassium 4.2 mmol/L (3.5-5.1); Sodium 138 mmol/L (137-145)
--- NOTE | 2021-12-02 13:37 | XR ---
EXAMINATION TYPE: XR chest 2V DATE OF EXAM: 12/02/2021 COMPARISON: None HISTORY: Chest pain TECHNIQUE: Frontal and lateral views of the chest are obtained. FINDINGS: There is no focal air space opacity, pleural effusion, or pneumothorax seen. The cardiac silhouette size is within normal limits. The osseous structures are intact. IMPRESSION: No acute cardiopulmonary process.
[2021-12-02] MEDS ORDERED: ASPIRIN 81 MG PO STA (13:44)
[2021-12-02] MEDS ORDERED: NITROGLYCERIN SL TABS 0.4 MG TAB SUBLINGUAL PRN (13:49)
[2021-12-02] MEDS ORDERED: NALOXONE 0.4 MG/ML 1 ML VIAL IV PRN (15:06)
[2021-12-02] MEDS ORDERED: MAG HYDROX/AL HYDROX/SIMETH 30 ML, HYOSCYAMINE ELIXIR 10 ML, LIDOCAINE VISCOUS 2% 10 ML PO ONE ×3 (15:08)
--- NOTE | 2021-12-02 15:09 | P.HPIM ---
History of Present Illness H&P Date: 12/02/21 Chief Complaint: chest pain Patient is a 26-year-old female with history of anxiety, hypertension presenting with acute chest pain. She claims that her chest pain started last night at 10 PM, has been gradually worsening. It is substernal, squeezing, 6/10 to 10/10, constant, nonradiating. She denies any changes in her diet, or recent anxiety attacks. She denies any shortness of breath, palpitations, lightheadedness, abdominal pain, reflux, nausea, vomiting, diaphoresis, diarrhea, constipation, traveling, or sick contacts. She claims that she's had these chest pains in the past, but resolves on their own. In the ED, vital signs were within normal limits, lab work was significant for troponin of 0.017, negative d-dimer negative chest x-ray and EKG showed normal sinus rhythm. Patient seen and examined at bedside. Pertinent positives and negatives as discussed in HPI, a complete review of systems was performed and all other systems are negative. Vital signs reviewed General: nontoxic, no distress, appears at stated age Derm: warm, dry Head: atraumatic, normocephalic, symmetric Eyes: EOMI, no lid lag, anicteric sclera, pupils equal round reactive to light ENT: Nose and ears atraumatic, no thrush, no pharyngeal erythema Neck: No thyromegaly, no cervical lymphadenopathy, trachea midline, supple Mouth: no lip lesion, mucus membranes moist Cardiovascular: S1S2 reg, no murmur, no edema Lungs: clear to auscultation bilateral, no rhonchi, no rales, no wheeze, no accessory muscle use Abdominal: soft, nontender to palpation, no guarding, no appreciable organomegaly, normal bowel sounds Ext: no gross muscle atrophy, muscle strength muscle strength 5 out of 5 in all 4 extremities, no contractures Neuro: CN II-XII grossly intact, light touch intact all 4 extremities Psych: Alert, oriented, appropriate affect Assessment/Plan: Atypical chest pain -Rule out ACS -Telemetry -Continue to trend troponin -EKG and chest x-ray unremarkable -Likely chest pain secondary to esophageal spasm, reflux, or anxiety -We'll try GI cocktail Rest of the medications reviewed and reconciled DVT prophylaxis: low geo score, ambulatory The patient is admitted with an anticipated less than 2 midnight stay for evaluation of chest pain. CODE STATUS: Full code DVT prophylaxis: SCD Anticipated discharge date: 12/[address]: home A total of 48 minutes was spent on the care of this complex patient more than 50% of the time was spent in counseling and care coordination. Past Medical History Past Medical History: Hypertension Additional Past Medical History / Comment(s): Positive anti-M antibody. History of Any Multi-Drug Resistant Organisms: None Reported Past Surgical History: No Surgical Hx Reported Past Anesthesia/Blood Transfusion Reactions: No Reported Reaction Past Psychological History: Anxiety, Depression Smoking Status: Current every day smoker Past Alcohol Use History: Occasional Past Drug Use History: None Reported - Past Family History Mother Family Medical History: No Reported History Medications and Allergies Home Medications Medication Instructions Recorded Confirmed Type No Known Home Medications 12/02/21 12/02/21 History Allergies Allergy/AdvReac Type Severity Reaction Status Date / Time No Known Allergies Allergy Verified 12/02/21 11:20 Physical Exam Vitals: Vital Signs Temp Pulse Pulse Resp BP BP Pulse Ox 12/02/21 15:00 98 F 64 16 138/81 100 12/02/21 14:47 84 18 132/81 96 12/02/21 13:00 85 18 133/91 100 12/02/21 11:18 98.1 F 88 16 128/93 100 Intake and Output 12/02/21 12/02/21 12/02/21 06:59 14:59 22:59 Other: Weight 97.522 kg Results CBC & Chem 7: 12/02/21 12:13 12/02/21 12:13
[2021-12-02] MEDS ORDERED: ACETAMINOPHEN TAB 325 MG TAB PO PRN (17:56)
[2021-12-03 08:25] VITALS: BP 152/76; PULSE 75; RESP 18; TEMP 97.8
[2021-12-03] MEDS ORDERED: ASPIRIN 325 MG TAB PO SCH (09:00)
[2021-12-03] MEDS ORDERED: NICOTINE 14MG/24HR PATCH TRANSDERM SCH (09:00)
[2021-12-03 09:28] LABS: Chol/HDL Ratio 4.03 Ratio; LDL Cholesterol,Calculated 126.2 mg/dL (0.0-131.0)
--- NOTE | 2021-12-03 15:19 | P.DS ---
Providers Date of admission: 12/02/21 13:49 Expected date of discharge: 12/03/21 Attending physician: Tracy Durham MD Primary care physician: Stated None Hospital Course: Discharge Diagnosis: Atypical chest pain Nicotine dependence Dyslipidemia Hospital Course: 26-year-old female with history of anxiety and nicotine dependence presenting with atypical chest pain. Her chest pain has been on and off for the last few months. However this tumor was more persistent. Her EKG was normal sinus rhythm, negative d-dimer, negative chest x-ray, troponin were negative. Chest pain resolved with GI cocktail. He was either gastric reflux, or esophageal spasm. Patient also smokes about 1 pack per day, counseled regarding smoking cessation. Lab work also showed triglycerides of 290, total cholesterol 245, LDL 126. Patient will benefit from dietary and lifestyle modification. Patient to follow-up with PCP outpatient. Patient seen and examined at bedside. Vital signs reviewed and stable. General: nontoxic, no distress, appears at stated age Derm: warm, dry Head: atraumatic, normocephalic, symmetric Eyes: EOMI, no lid lag, anicteric sclera Mouth: no lip lesion, mucus membranes moist Cardiovascular: S1S2 reg, no murmur Lungs: CTA bilateral, no rhonchi, no rales , no accessory muscle use Abdominal: soft, nontender to palpation, no guarding, no appreciable organomegaly Ext: no gross muscle atrophy, no edema, no contractures Neuro: CN II-XI grossly intact, no focal neuro deficits Psych: Alert, oriented, appropriate affect A total of 37 minutes of time were spent preparing this complex discharge summa ry. Patient was discharged on 12/03/21 at 9:53. Patient Condition at Discharge: Stable Plan - Discharge Summary Discharge Rx Participant: No New Discharge Prescriptions: No Action No Known Home Medications Discharge Medication List No Known Home Medications 12/02/21 [History] Follow up Appointment(s)/Referral(s): None,Stated [Primary Care Provider] - 1-2 days Patient Instructions/Handouts: Chest Pain (DC), Esophageal Spasm (GEN) Activity/Diet/Wound Care/Special Instructions: Please see PCP in 1-2 days. Discharge Disposition: HOME SELF-CARE
== END 2021-12-03 10:40 | disposition home or self-care (01) ==
LOC: EC 11:16 → 6NMEDSUR 13:49
PROVIDERS: ADMIT Family Medicine; ATTEND Family Medicine
DX: R07.89 Other chest pain (principal); E78.5 Hyperlipidemia, unspecified; I10 Essential (primary) hypertension; F41.9 Anxiety disorder, unspecified; F32.A Depression, unspecified; F17.200 Nicotine dependence, unspecified, uncomplicated; Z32.02 Encounter for pregnancy test, result negative
CPT/HCPCS: 99285; 36415; 93005; 85379; 80061; 80048; 84443; 84484; 85025; 81025; 83036; 71046; G0378 ×2; S4990